=== PATIENT | female | born 1985 | race Caucasian/White ===

== ENCOUNTER 2017-09-10 09:15 | Inpatient (IN) | payer OTHER, SELFPAY ==
[2017-09-10] MEDS: Lactated Ringers 1,000 ML 50 ML IV ×3 (09:52→17:32)
[2017-09-10 09:57] LABS: Hematocrit 35.5 % (37-47); Hemoglobin 12.4 g/dl (12.0-15.0); Mean Corp Hgb Conc 34.9 g/gl (32-36); Mean Corpuscular Volume 88.8 fL (81-99); Mean Platelet Vol. 10.7 fl (6.2-12.0); Platelet Count 131 K/mm3 (150-450); RBC Distribution Width SD 48.7 fl (35.1-43.9); White Blood Count 9.7 K/mm3 (4.4-11.0)
[2017-09-10 10:00] LABS: Scan Indicated on CBC? Y/N NO
[2017-09-10] MEDS: Oxytocin 30 units/NS 500 ml 30 UNITS/500 ML IV.SOLN IV (10:34)
--- NOTE | 2017-09-10 17:59 | PCM.HP.OB ---
History Date of Admission: 09/10/17 Gestational age: 40 History of this : 32 YOF G [id number] @ 40 3/7 weeks w/ c/o decreased FM for past 3 days. No VB/LOF. No regular ctxs. Pertinent Past Medical History: abnormal pap H/o LEEP Allergies shellfish derived Allergy (Verified 09/03/17 04:04) Angioedema Current Medications Acetaminophen (Tylenol) 325 - 650 mg PO Q4H PRN PRN PRN Reason: PAIN OR FEVER >100.4F Al Hydroxide/Mg Hydroxide (Mylanta Ii) 15 - 30 ml PO Q4H PRN PRN PRN Reason: INDIGESTION Citric Acid/Sodium Citrate (Bicitra) 30 ml PO UD PRN Lactated Ringer's () 1,000 mls @ 50 mls/hr IV .Q20H [facility] Last Admin: 09/10/17 17:32 Dose: 50 mls/hr Oxytocin/Sodium Chloride () 30 units in 500 mls @ 1 mls/hr IV .Q500H [facility] Last Admin: 09/10/17 10:34 Dose: 1 mls/hr Penicillin G Potassium/Dextrose (Penicillin G Potassium) 3 mu in 50 mls @ 100 mls/hr IV Q4H MARCELA Last Admin: 09/10/17 17:32 Dose: 100 mls/hr Naloxone HCl 4 mg/ Dextrose 504 mls @ 0 mls/hr IV PRN PRN; Protocol PRN Reason: TO MAINTAIN RR>10 Stop: 09/11/17 15:36 Nalbuphine HCl (Nubain) 5 - 10 mg IV Q3H PRN PRN PRN Reason: PAIN (4-10/10) Nalbuphine HCl (Nubain) 5 mg IV Q3H PRN PRN Reason: ITCHING Stop: 09/11/17 15:35 Naloxone HCl (Narcan) 0.2 mg IV Q1M PRN PRN Reason: RR<10 AND PT UNRESPONSIVE Stop: 09/11/17 15:35 Ondansetron HCl (Zofran) 4 mg IV Q8H PRN PRN PRN Reason: NAUSEA Promethazine HCl (Phenergan (Ll)) 6.25 - 12.5 mg IV Q4H PRN PRN; Protocol PRN Reason: IF NAUSEA PERSISTS Sodium Chloride () 5 - 15 ml IV UD [facility] Last Admin: 09/10/17 11:24 Dose: Not Given Review of Systems Constitutional: Denies: Chills, Fever Cardiovascular: Denies: Chest Pain Respiratory: Denies: Cough Physical Exam General: Alert, Cooperative, No apparent distress Cardiovascular: Regular rate Lungs: Clear to auscultation Abdomen: Soft, Non Tender, Non-Distended, Gravid Estimated gestational size: Appropriate for gestational size Presentation: Cephalic Cervix Dilation (cm): 3 - arom w/ return clear fluid Station: -2 Effacement (%): 70 Assessment/Plan FHTs category one upon admission a/p 32-year-old 4 para 2 female at 40-3/7 weeks for induction of labor due to decreased movement over the past couple of days. Patient understands adduction is elective risk benefits and alternatives to induction been discussed and consent was signed. Injection is reasonable considering she is multigravida with decreased movement and a favorable cervix. The weight is less than 5000 g and pelvis is clinically adequate to expect vaginal delivery. Epidural desires. Group B strep prophylaxis will be initiated.
--- NOTE | 2017-09-10 18:03 | HP.PCM_ITS ---
History Date of Admission: 09/10/17 Gestational age: 40 History of this : 32 YOF G [id number] @ 40 3/7 weeks w/ c/o decreased FM for past 3 days. No VB/LOF. No regular ctxs. Pertinent Past Medical History: abnormal pap H/o LEEP Allergies shellfish derived Allergy (Verified 09/03/17 04:04) Angioedema Current Medications Acetaminophen (Tylenol) 325 - 650 mg PO Q4H PRN PRN PRN Reason: PAIN OR FEVER >100.4F Al Hydroxide/Mg Hydroxide (Mylanta Ii) 15 - 30 ml PO Q4H PRN PRN PRN Reason: INDIGESTION Citric Acid/Sodium Citrate (Bicitra) 30 ml PO UD PRN Lactated Ringer's () 1,000 mls @ 50 mls/hr IV .Q20H [facility] Last Admin: 09/10/17 17:32 Dose: 50 mls/hr Oxytocin/Sodium Chloride () 30 units in 500 mls @ 1 mls/hr IV .Q500H [facility] Last Admin: 09/10/17 10:34 Dose: 1 mls/hr Penicillin G Potassium/Dextrose (Penicillin G Potassium) 3 mu in 50 mls @ 100 mls/hr IV Q4H MARCELA Last Admin: 09/10/17 17:32 Dose: 100 mls/hr Naloxone HCl 4 mg/ Dextrose 504 mls @ 0 mls/hr IV PRN PRN; Protocol PRN Reason: TO MAINTAIN RR>10 Stop: 09/11/17 15:36 Nalbuphine HCl (Nubain) 5 - 10 mg IV Q3H PRN PRN PRN Reason: PAIN (4-10/10) Nalbuphine HCl (Nubain) 5 mg IV Q3H PRN PRN Reason: ITCHING Stop: 09/11/17 15:35 Naloxone HCl (Narcan) 0.2 mg IV Q1M PRN PRN Reason: RR<10 AND PT UNRESPONSIVE Stop: 09/11/17 15:35 Ondansetron HCl (Zofran) 4 mg IV Q8H PRN PRN PRN Reason: NAUSEA Promethazine HCl (Phenergan (Ll)) 6.25 - 12.5 mg IV Q4H PRN PRN; Protocol PRN Reason: IF NAUSEA PERSISTS Sodium Chloride () 5 - 15 ml IV UD [facility] Last Admin: 09/10/17 11:24 Dose: Not Given Review of Systems Constitutional: Denies: Chills, Fever Cardiovascular: Denies: Chest Pain Respiratory: Denies: Cough Physical Exam General: Alert, Cooperative, No apparent distress Cardiovascular: Regular rate Lungs: Clear to auscultation Abdomen: Soft, Non Tender, Non-Distended, Gravid Estimated gestational size: Appropriate for gestational size Presentation: Cephalic Cervix Dilation (cm): 3 - arom w/ return clear fluid Station: -2 Effacement (%): 70 Assessment/Plan FHTs category one upon admission a/p 32-year-old 4 para 2 female at 40-3/7 weeks for induction of labor due to decreased movement over the past couple of days. Patient understands adduction is elective risk benefits and alternatives to induction been discussed and consent was signed. Injection is reasonable considering she is multigravida with decreased movement and a favorable cervix. The weight is less than 5000 g and pelvis is clinically adequate to expect vaginal delivery. Epidural desires. Group B strep prophylaxis will be initiated.
[2017-09-10] MEDS: Oxytocin 30 units/NS 500 ml 30 UNITS/500 ML IV.SOLN 334 UNITS IV (18:15)
--- NOTE | 2017-09-10 18:37 | PCM.OB.VAG ---
Vaginal Delivery Maternal Presentation: Elective Induction Method of Induction: Pitocin, Amniotomy Amniotic Membrane Rupture Type: Artificial Amniotic Fluid Description: Clear Final CINDY: 09/07/17 Final CINDY Source: US <20 weeks Gestational age: 40 Weeks and 3 Days Date of Procedure: 09/10/17 Pre-Operative Diagnosis: labor Post-Operative Diagnosis: same Surgery/ Procedure Performed: Spontaneous Vaginal Delivery Type of Anesthesia: Epidural Description of Procedure: A vigorous female was delivered KURTIS over a second-degree perineal laceration. The remainder the was delivered with maternal pushing and gentle traction only in less than 15 seconds. The Pitocin infusion was initiated for active management of the third stage. The cord was clamped and cut after 1 minute. The infant was attended to by the waiting nursing staff. The placenta was delivered spontaneously and intact. The cervix and vagina were intact. The second-degree perineal laceration was repaired with 3-0 Vicryl suture in a running standard fashion. Sponge and needle counts were correct. A vaginal sweep was completed by me. Presentation: KURTIS Placental Delivery Description: Spontaneous Placenta Disposition: [facility] Cord Vessel Description: 3 Vessels Cord Entanglement: None Drain: Murray to straight drain Estimated Blood Loss: 300 Infant A gender: Female (1 minute): 8 (5 minute): 9 Episiotomy Description: None Laceration: 2nd degree Medications given after delivery: IV Pitocin Complications: None
[2017-09-10] MEDS: Oxytocin 30 units/NS 500 ml 30 UNITS/500 ML IV.SOLN 167 UNITS IV (18:45)
[2017-09-10] MEDS: Naproxen 250 MG Tablet PO (23:37)
[2017-09-10 23:46] VITALS: BP 90/58; PULSE 61; RESP 18; TEMP 36.9; O2SAT 100
[2017-09-11 04:37] VITALS: BP 96/63; PULSE 86; RESP 18; TEMP 36.6; O2SAT 99
[2017-09-11 07:50] VITALS: BP 104/62; PULSE 84; RESP 16; TEMP 36.4; O2SAT 98
--- NOTE | 2017-09-11 08:46 | PCM.PN.OB ---
Subjective: pain well controlled, average lochia, some low back pain - Physical Exam General: Alert, Cooperative, No apparent distress Vital Signs Temp Pulse Resp BP Pulse Ox 97.9 F 86 18 96/63 99 09/11/17 04:37 09/11/17 04:37 09/11/17 04:37 09/11/17 04:37 09/11/17 04:37 Oxygen Delivery Method Room Air Weight: 86.999 kg Body Mass Index (BMI) 30.0 Intake and Output for Last 24 Hours 09/09/17 09/10/17 09/11/17 23:59 23:59 23:59 Intake Total 700 / 700 Output Total 800 / 800 300 / 300 Balance -100 / -100 -300 / -300 Laboratory Tests Past 24 Hrs 09/10/17 09/10/17 09:45 09:45 WBC 9.7 RBC 4.00 L Hgb 12.4 Hct 35.5 L MCV 88.8 MCH 31.0 MCHC 34.9 RDW 15.0 H RDW Differential 48.7 H Plt Count 131 L MPV 10.7 Blood Type A POSITIVE Antibody Screen NEGATIVE Assessment/Plan PPD#1 doing well routine care
--- NOTE | 2017-09-11 08:49 | DCINST_ITS ---
Discharge Diet: No Restrictions Discharge Activity: Return to Normal Activity, May not drive while taking narcotic pain medications., May Shower May resume sexual activity in: 4-6 weeks Additional Activity Instructions:: Nothing in the vagina for 4-6 weeks. You may return to work/school in 6 weeks. Call your doctor if your incision/area has: Continuous Slow Oozing, Sudden Increased Bleeding, Increased Pain/ Swelling, Increased Redness, Foul Smelling Discharge Additional Instructions: If you experience any of the following, contact your healthcare provider. * Bleeding that soaks a pad every hour for 2 hours * Fever 100.4 or higher * Unrelieved incision or abdominal pain * Swelling, redness, discharge or bleeding from your incision or episiotomy site * Your incision begins to separate * Problems urinating (including inability to urinate or burning while urinating) . * Visual changes * Severe headache * Flu-like symptoms * Pain or redness in one of both of your breasts * Pain, warmth, tenderness or swelling in your legs, especially the calf area * Frequent nausea and vomiting * Symptoms of depression or anxiety If you experience any of the following, call 911 or go to the nearest Emergency Room. * Chest pain * Problems breathing * Seizure activity * Partial or complete paralysis of a body part, slurred speech, weakness or drooping of the face, or a sudden inability to walk or hold your balance Allergies/Adverse Reactions: Allergies shellfish derived Allergy (Verified 09/03/17 04:04) Angioedema Medications to take at Discharge Pnv with Ca,No.72/Iron/FA [ Plus Tablet] 1 tab PO DAILY 01/26/15 Ibuprofen [Motrin] 600 mg PO Q6H PRN #60 tab 09/11/17 The following prescriptions were given: Ibuprofen [Motrin] 600 mg PO Q6H PRN #60 tab PRN Reason: Pain Orders to be completed after discharge: Electric breast pump Location: None Selected Please Follow Up With: Missy Stephenson MD - [phone] When: Call to make an appointment with your doctor's office in 6 weeks. If you had elevated Blood Pressure or 4th degree laceration you will need to be seen in 2 weeks. Primary Care Physician: Magno Brambila [Primary Care Provider] -
[2017-09-11] MEDS: Dibucaine 30 GM Tube 1 APPLIC TOPICAL (09:19)
[2017-09-11] MEDS: Naproxen 250 MG Tablet PO ×2 (09:22→17:26)
[2017-09-11] MEDS: Senna/Docusate Sodium 1 Tablet PO (09:23)
[2017-09-11 12:35] VITALS: BP 103/55; PULSE 71; RESP 16; TEMP 37.1; O2SAT 98
[2017-09-11 16:55] VITALS: BP 110/61; PULSE 76; RESP 16; TEMP 36.7; O2SAT 98
[2017-09-11 20:16] VITALS: BP 106/62; PULSE 74; RESP 16; TEMP 36.7; O2SAT 99
[2017-09-12 01:30] VITALS: BP 99/63; PULSE 62; RESP 17; TEMP 36.2; O2SAT 98
[2017-09-12 07:46] VITALS: BP 112/71; PULSE 70; RESP 16; TEMP 36.6; O2SAT 97
[2017-09-12 07:48] VITALS: PULSE 70; RESP 16; O2SAT 97
--- NOTE | 2017-09-12 09:09 | NURSING ---
Called office, pond scaler akbar. Made aware that pt is waiting to go home but akbar has not rounded on pt yet. Melissa in office stated she spoke with and stated that will be over sometime to see pt.
--- NOTE | 2017-09-12 10:07 | PCM.PN.OB ---
Subjective: pt seen at bedside, doing well. pt reports good pain control. lochia mild. Breast feeding. urinating w/o difficulty. - Physical Exam General: Alert, Oriented x3 Abdomen: Soft, - - fundus firm Vital Signs Temp Pulse Resp BP Pulse Ox 97.8 F 70 16 112/71 97 09/12/17 07:46 09/12/17 07:48 09/12/17 07:48 09/12/17 07:46 09/12/17 07:48 Oxygen Delivery Method Room Air Weight: 86.999 kg Body Mass Index (BMI) 30.0 Intake and Output for Last 24 Hours 09/10/17 09/11/17 09/12/17 23:59 23:59 23:59 Intake Total 700 / 700 Output Total 800 / 800 300 / 300 Balance -100 / -100 -300 / -300 Assessment/Plan 32yo PPD#2, doing well routine care dc home
--- NOTE | 2017-09-12 10:38 | NURSING ---
1507 While rounding, Mom states nursing is going well but encouraged to call if any further questions or concerns. [place]
== END 2017-09-12 10:15 | disposition home or self-care (01) | DRG 775 ==
PROVIDERS: Admitting Provider Obstetrics & Gynecology; Family Provider Family Medicine; PCP Family Medicine; Visit Provider Obstetrics & Gynecology
DX: O36.8130 Decreased fetal movements, third trimester, not applicable or unspecified (principal); O70.1 Second degree perineal laceration during delivery; Z3A.40 40 weeks gestation of pregnancy; Z37.0 Single live birth
CPT/HCPCS: 59025; 59050; 85027; 86850; 86900; 99218; J7120; A4216; G0378

== ENCOUNTER 2024-03-12 07:06 | Day surgery (SDC) | payer OTHER, SELFPAY ==
--- NOTE | 2024-03-10 18:01 | HP.PCM.OB_ITS ---
History and Physical Date of Admission: 03/12/24 Expand All Collapse All Pre-Op History and Physical HPI: The patient is a 38 year old female presenting for pre-operative visit. She is scheduled for Hysteroscopy D&C, polypectomy, with symphion and Insertion of Liletta IUD for AUB on 03/12/24. Procedure discussed along with risks, benefits and complications. Other alternatives discussed for management. Consent form signed? Yes. PAST MEDICAL HISTORY PAST MEDICAL HISTORY Diagnosis Date ? Breast cyst, right 2020 ? 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 APPENDECTOMY 2011 ? EXTRACTION, ERUPTED TOOTH OR EXPOSED ROOT (ELEVATION AND/OR FORCEPS REMOVAL) ? INSERTION OF IUD 03/11/2015 AT ? LEEP PROCEDURE ([employer] 09/01/2010 Done in [facility] CURRENT MEDICATIONS Current Outpatient Medications Medication Sig Dispense Refill ? sertraline (ZOLOFT) 25 mg tablet Take 1 tablet by mouth once daily. 90 tablet 3 ? Multivitamin capsule Take 1 capsule by mouth once daily. No current facility-administered medications for this visit. ALLERGIES: Shellfish PERSONAL HISTORY: SOCIAL HISTORY Social History Tobacco Use ? Smoking status: Never ? Smokeless tobacco: Never Vaping Use ? Vaping Use: Never used Substance Use Topics ? Alcohol use: Yes Alcohol/week: 3.0 - 4.0 standard drinks of alcohol Types: 3 - 4 Glasses of Wine (5oz) per week ? Drug use: No FAMILY HISTORY: FAMILY HISTORY FAMILY HISTORY Problem Relation Age of Onset ? other (Breast Cancer x 2) Mother 38 lumpectomy ? other (double mastectomy) Mother 44 ? Heart Father A-Fib with pacemaker ? other (paralized diaphragm) Father ? other (pre-diabetes) Sister ? Melanoma Sister 41 ? Cancer Maternal Grandmother 58 Malignant Melanoma ? Alzheimer's Disease Paternal Grandmother ? Colon Cancer Paternal Grandfather 87 ? Breast Cancer Maternal Aunt DCIS stage 1 HR+ @52 ? Brain Cancer Maternal Aunt x2 spread to lungs, triple neg cancer in breat @ 63 ? other (invasive ductal carcinoma grade 1) Maternal Aunt ? other (ductal carinoma in situ, low nucular grade, cibriform type) Maternal Aunt 53 ? Glaucoma No Family History ? Blindness No Family History ? Macular Degen No Family History ? Detached Retina No Family History REVIEW OF SYMPTOMS: negative except as noted above PHYSICAL EXAMINATION: VITALS: Blood pressure 118/66, height 170.2 cm (5' 7), weight 87.1 kg (192 lb), last menstrual period 03/10/2024. GENERAL: The patient is well nourished, well hydrated in no acute distress. , The patient is oriented to time, place, and person. NECK: full range of motion IMPRESSION: 38yo with AUB, endometrial polyps PLAN: hysteroscopy, D&C with symphion, polypectomy and IUD insertion- cari Pt has been counseled on risks/benefits and alternatives of surgery including but not limited to anesthesia, bleeding, infection, uterine perforation with subsequent injury to pelvic structures including bowel, bladder, ureters and vessels. Pt wishes to proceed with surgery at this time. Pre and post op instructions reviewed I have reviewed and updated past medical and surgical history, medications and allergies Lucy Borges MD
[2024-03-12] VITALS (7 sets, daily range): BP systolic 108–113; BP diastolic 77–85; PULSE 69–92; RESP 16–18; TEMP 36.2–36.6; O2SAT 94–98; BMI 29.7
--- NOTE | 2024-03-12 07:27 | PCM.PRE.AN2 ---
ASA Classification* ASA Classification ASA Classification: 2 Assessment & Plan Anesthesia* Anesthesia Assessment Anesthesia Assessment: Discussed sedation and/or anesthesia options, risks, benefits, and alternatives with patient/parents/legal guardian/POA. Questions invited. The patient/parents/legal guardian/POA seems to understand and agrees to proceed with anesthesia plan. Reviewed the physical assessment, medical history, allergy history and patient home medications list prior to surgery/procedure/anesthetic and documented any changes. Performed airway and anesthesia risk assessments. 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 When Was Last Pacemaker Check QUESTION #4 FULL TEXT: You/Your Family Experience fever (hyperthermia) with Anesthesia Last Oral Intake Last Oral intake: Last Oral Intake NPO since Meds taken in AM with sips of water? Meds patient instructed to take am of surgery PONV PONV - aircraft instrument mechanic: PONV - aircraft instrument mechanic Female Yes 03/05/24 09:59 HX of Motion Sickness Yes 03/05/24 09:59 HX of N/V After Surgery No 03/05/24 09:59 Non-Smoker Yes 03/05/24 09:59 Duration of Surgery greater No 03/05/24 09:59 than 60 minutes Number of Risk Factors 3 03/05/24 09:59 PONV Score Moderate Risk 03/05/24 09:59 Respiratory Assessment Respiratory Assessment - aircraft instrument mechanic: Respiratory Tract Infection Hx - aircraft instrument mechanic Hx Respiratory Tract Infection No 03/05/24 09:59 STOP Sleep Apnea STOP Sleep Apnea - aircraft instrument mechanic: STOP Sleep Apnea - aircraft instrument mechanic Hx Hypertension No 03/05/24 09:59 Hx Sleep Apnea No 03/05/24 09:59 CPAP BIPAP Do you snore loudly (louder No 03/05/24 09:59 than talking or can be heard Do you often feel tired/ No 03/05/24 09:59 fatigued/ sleepy during daytime? Has anyone observed you stop No 03/05/24 09:59 breathing during sleep? STOP Results Negative 03/05/24 09:59 QUESTION #5 FULL TEXT : Do you snore loudly (louder than talking or can be heard through closed doors)? 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 Specify any problems Hx of Preganancy in last 3 No 03/05/24 09:59 Months Nurse Filling Out Transfusion DSCHRIBER 03/05/24 09:59 & Questions: Date: 03/05/24 03/05/24 09:59 Time: 10:00 03/05/24 09:59 Patient unable to answer at this time (ie. confused, unrespo /Reproduction History /Reproductive History - aircraft instrument mechanic: /Reproductive Hx- aircraft instrument mechanic Hx Now No 03/05/24 09:59 Gestational Age (in weeks): EDC: Hx Hx Para Hx Section SAB No 03/05/24 09:59 Active Medications Active Medications: Current Medications Generic Name Dose Route Start Last Admin Trade Name Orion PRN Reason Stop Dose Admin Lactated Ringer's 1,000 mls @ 15 mls/hr 03/12/24 07:30 IV .Q48H MARCELA Levonorgestrel 1 each 03/12/24 08:55 Levonorgestrel Iud (Liletta) INTRA-UTER 03/12/24 08:56 X1 ONE PFSH Medical History Wears glasses Anxiety Alcohol use Low iron Shortness of breath on exertion Non-smoker Leg cramps Hx of lipoma Hx LEEP (loop electrosurgical excision procedure), cervix, Home Medications ?Medication ?Instructions ?Recorded ?Last Taken ?Type sertraline 25 mg tablet 25 mg PO QHS 03/05/24 Unknown History Allergy/AdvReac Type Severity Reaction Status Date / Time shellfish derived Allergy Angioedema Verified 03/05/24 09:57 Surgical History Hx of wisdom tooth extraction Hx of appendectomy Social History Smoking Status: Never smoker Review of Systems (Anesthesia) ROS Narrative System reviewed and no additional complaints, except as documented.
[2024-03-12] MEDS: Lactated Ringers 1,000 ML 15 ML IV (07:30)
[2024-03-12 08:02] LABS: Internal QC Validated? YES +Cl - CLEAR BKGD; Pregnancy, Urine Negative Negative
[2024-03-12] MEDS: Levonorgestrel IUD (Liletta) 1 EACH INTRA-UTER (08:56)
--- NOTE | 2024-03-12 08:58 | PCM.OPRPT ---
Report of Operation Date of Procedure: 03/12/24 Pre-Operative Diagnosis: AUB, Endometrial polyp Post-Operative Diagnosis: Same Surgery/Procedure Performed:: Hysteroscopy, D&C, Insertion of Liletta IUD Description of Surgical Findings:: Thickened endometrium but no well defined polyps noted Surgeon: Lucy Garner director life insurance: None Type of Anesthesia: MAC Specimen's removed: endometrial curettings Estimated Blood Loss (mL): <5cc Fluids Replaced: 400cc Description of Procedure: Informed consent was obtained the patient was taken the operating room she was placed in supine position. She was given anesthesia. She was then placed in the [facility] where she was prepped and draped in the normal sterile fashion. At this time the weighted speculum was placed in the posterior fornix of vagina. Single-tooth tenaculum was used to gently grasp the anterior lip the cervix. At this time the uterine cavity was sounded to approximately 8 cm. Gentle dilatation was performed once adequate dilatation of the cervix was achieved the hysteroscope using normal saline as a distention medium was placed. Tubal ostia visualized. Thickened tissue but no well defined polyps noted. Symphion resecting device used to obtain endometrial curettings. Tissue will be sent to pathology for evaluation. Liletta IUD placed. Tenaculum removed. Good hemostasis. Instrument, lap count correct x 2. Vaginal Sweep was negative.Fluid deficit 650cc. Grafts/Implants Used: Liletta IUD Procedure Start Time: 08:48 Procedure Stop Time: 08:57 Complications none Admit VTE Documentation VTE Present on Admission: Yes VTE Mechan Device Prophylaxis: SCD's VTE Pharm Prophylaxis ordered?: No Reason prophylaxis not ordered:: Procedure Not Indicated
--- NOTE | 2024-03-12 09:00 | EMB_PTH ---
PATIENT: JACKIE MO[place] [facility] [id number] AGE/SX: 38/F ROOM: RE03/12/[address]: Dr. Lucy Garner, MDDOB: 1985 BED: DIS: 03/12/2024 SPEC #: [id number] RECD: 03/12/24 09:21 STATUS: TONY KWONG #: [id number] ABIDA: 03/12/24 09:[address]: Lucy Garner DEPT: SURGICAL PATHOLOGY RECD BY: Adela Hernandez ENTERED: 03/12/24 11:43 SP TYPE: ENDOM BX/C ZACARIAS DR: No Primary Care Phys Tissues: Endometrium, NOS Procedures: Surgery Specimen Level IV HEADER OPERATION: Hysteroscopy, D&C, Liletta IUD insertion PRE-OP DIAGNOSIS: Abnormal uterine bleeding TISSUE SUBMITTED: Endometrial curettings MICROSCOPIC DIAGNOSIS Endometrium, curettings: Fragments of secretory endometrium with focal glandular and stromal breakdown. Fragments of benign myometrium. LUCIA/ 03/13/2024 MICROSCOPIC DESCRIPTION Slides are reviewed. GROSS DESCRIPTION Received in fixative is one container labeled with the patient's name and designated Endometrial curettings. The specimen consists of multiple irregular fragments of batista soft tissue that in aggregate measure 0.4 x 0.3 x 0.3 cm. The specimen is totally submitted in two cassettes. ARMANDO/ 03/12/2024 TC:5 CPT:[id number]
--- NOTE | 2024-03-12 09:01 | DCINST_ITS ---
Discharge Instructions Diet Discharge Diet: No restrictions Activity May resume sexual activity in: 1 week Dressing / Incision Call your doctor if you observe: Fever of 101 or Higher, Inability to urinate, Using more than 1 pad per hour and Uncontrolled pain Follow Up Care Please Follow Up With: Lucy Garner MD When: 1-2 weeks post OP if you need an appointment please call [phone] Test Results: Test results from this visit will be discussed in further detail at your follow- up appointment, if applicable. Discharge Plan Admission Attending Provider: Lucy Garner Primary Care Provider: Care Physician,No Primary Instructions Print Language: Brazilian Discharge Orders/Prescriptions Prescriptions: No Action sertraline 25 mg tablet 25 mg PO QHS Disposition Disposition (needs filled in before D/C Order can be placed): Home, Self Care
--- NOTE | 2024-03-12 09:07 | PCM.POST.ANE ---
Anesthesia: Postop Eval I Current Vital Signs Temperature: 97.8 F Pulse Rate: 87 Blood Pressure: 108/85 Respiratory Rate: 16 Pulse Ox: 97 Oxygen Delivery Method: Room Air Assessment Airway patent: Yes Spontaneous unlabored respirations: Yes Mental status: Awake and Calm nausea: No Vomiting: No Anesthesia Complication: No Fluid Hydration Crystalloid volume administer (ml): 400 Total IV fluid infused: 400 Progress Note Anesthesia document: Postop Eval 1 completed: Yes
--- NOTE | 2024-03-12 09:40 | POSTOPAN2_ITS ---
Anesthesia Postop Eval I Sum Postop Eval Completion status Anesthesia document: Postop Eval 1 completed: Yes Anesthesia Postop Eval I Summary Anesthesia Postop Eval I Summary: Anesthesia Postop Eval I: Assessment Summary Airway patent Yes 03/12/24 09:19 [email or web address] Spontaneous unlabored Yes 03/12/24 09:19 [email or web address] respirations Mental status Awake,Calm 03/12/24 09:19 [email or web address] nausea No 03/12/24 09:19 [email or web address] Vomiting No 03/12/24 09:19 [email or web address] Anesthesia Postop Eval I: Fluid Summary Crystalloid volume administer 400 03/12/24 09:19 [email or web address] (ml) Colloids volume administered ( ml) Blood Product volume administered (ml) Total IV fluid infused 400 03/12/24 09:19 [email or web address] Anesthesia Postop Eval I: Summary Notes Anesthesia Complication No 03/12/24 09:19 [email or web address] Anesthesia Complication Comment: Post-operative progress note Anesthesia: Postop Eval II Evaluation Mental status: Awake Pain Level: 0 nausea: No Vomiting: No
--- NOTE | 2024-03-12 09:40 | PCM.POSTANE2 ---
Anesthesia Postop Eval I Sum Postop Eval Completion status Anesthesia document: Postop Eval 1 completed: Yes Anesthesia Postop Eval I Summary Anesthesia Postop Eval I Summary: Anesthesia Postop Eval I: Assessment Summary Airway patent Yes 03/12/24 09:19 [email or web address] Spontaneous unlabored Yes 03/12/24 09:19 [email or web address] respirations Mental status Awake,Calm 03/12/24 09:19 [email or web address] nausea No 03/12/24 09:19 BINDER [email or web address] Vomiting No 03/12/24 09:19 [email or web address] Anesthesia Postop Eval I: Fluid Summary Crystalloid volume administer 400 03/12/24 09:19 [email or web address] (ml) Colloids volume administered ( ml) Blood Product volume administered (ml) Total IV fluid infused 400 03/12/24 09:19 [email or web address] Anesthesia Postop Eval I: Summary Notes Anesthesia Complication No 03/12/24 09:19 [email or web address] Anesthesia Complication Comment: Post-operative progress note Anesthesia: Postop Eval II Evaluation Mental status: Awake Pain Level: 0 nausea: No Vomiting: No
== END 2024-03-12 09:45 | disposition home or self-care (01) ==
LOC: SDC 07:07 → AC 07:15
PROVIDERS: Anesthesiology; Referring Provider Obstetrics & Gynecology; Visit Provider Obstetrics & Gynecology
PROC: 0UB98ZZ Excision of Uterus, Via Natural or Artificial Opening Endoscopic (ICD-10-PCS; CPT 58558; principal; 2024-03-12 08:45)
DX: N93.9 Abnormal uterine and vaginal bleeding, unspecified (principal); N84.0 Polyp of corpus uteri; F41.9 Anxiety disorder, unspecified; Z79.899 Other long term (current) drug therapy; Z30.430 Encounter for insertion of intrauterine contraceptive device
CPT/HCPCS: 58558; 58300; 00952; 81025; 88305; J7120; J2405